=== PATIENT | male | born 1960 | race Caucasian/White ===

== ENCOUNTER 2022-05-04 15:47 | Emergency (ER) | payer BC ==
[2022-05-04] MEDS ORDERED: Magnesium 2 GM/50 ML BAG (IN WATER) ONE ×2 (16:18→17:05)
[2022-05-04 16:23] LABS: #Basophils 0.1 10x3/uL (0.0-0.2); #Eosinphils 0.3 10x3/uL (0.0-0.5); #Monocytes 0.8 10x3/uL (0.0-1.1); #Neutrophils 4.9 10x3/uL (1.5-8.4); %Basophils 1.1 % (0.0-2.0); %Eosinophils 3.8 % (0.0-6.0); %Lymphocytes 25.2 % (18.0-47.0); %Monocytes 9.5 % (0.0-10.0); %Neutrophils 59.7 % (40.0-75.0); Hemoglobin 11.1 g/dL (13.5-17.5); Mean Corpuscular HGB CONC 32.6 g/dL (32.0-36.0); Mean Corpuscular Hemoglobin 30.5 pg (27.0-33.0); Mean Corpuscular Volume 93.4 fl (81.2-95.1); Mean Platelet Volume 8.5 fl (7.4-10.4); Platelet Count 359 10x3/uL (150-450); RBC Distribution Width 15.3 % (11.5-14.5); Red Blood Cell (RBC) Count 3.64 10x6/uL (4.32-5.72); White Blood Cell (WBC) Count 8.2 10x3/uL (3.5-10.5)
[2022-05-04 16:34] LABS: ALT (SGPT) 38 U/L (8-55); AST (SGOT) 31 U/L (5-34); Albumin 3.3 g/dL (3.5-5.0); Alkaline Phosphatase 141 U/L (40-110); Anion Gap 14 mmol/L (10-20); BUN (Urea Nitrogen) 29 mg/dL (8.4-25.7); Bilirubin, Total 0.8 mg/dL (0.2-1.2); CK (CPK) 88 U/L (30-200); Calc. Creatinine Clearance 0 mL/min (70-130); Calcium 8.2 mg/dL (7.8-10.44); Carbon Dioxide 26 mmol/L (22-29); Chloride 94 mmol/L (98-107); Estimated GFR 49; Glucose 80 mg/dL (70-105); Magnesium 1.1 mg/dL (1.6-2.6); Potassium 3.1 mmol/L (3.5-5.1); Protein, Total 6.3 g/dL (6.0-8.3); Sodium 131 mmol/L (136-145)
[2022-05-04] MEDS ORDERED: diphenhydrAMINE 50 MG/ML VIAL ONE (17:05)
== END 2022-05-04 19:19 | disposition home or self-care (01) ==
LOC: CSHERS 15:47
DX: E83.42 Hypomagnesemia (principal); I25.2 Old myocardial infarction; I48.91 Unspecified atrial fibrillation; K21.9 Gastro-esophageal reflux disease without esophagitis; Z87.891 Personal history of nicotine dependence
CPT/HCPCS: 82550; 83735; 85025; 93005; 96365; 96366; 96375; J1200; J3475

== ENCOUNTER 2022-06-02 08:58 | Outpatient (CLI) | payer BC | END 2022-06-02 08:59 | disposition home or self-care (01) | LOC: CSHWCC 08:58 | PROVIDERS: ATTEND Nurse Practitioner Family | DX: L89.323 Pressure ulcer of left buttock, stage 3 (principal); T81.89XD Other complications of procedures, not elsewhere classified, subsequent encounter; Z93.2 Ileostomy status | CPT/HCPCS: 99204; G0463 ==

== ENCOUNTER 2022-06-30 13:01 | Outpatient (CLI) | payer BC | END 2022-06-30 13:02 | disposition home or self-care (01) | LOC: CSHWCC 13:01 | PROVIDERS: ATTEND Nurse Practitioner Family | DX: T81.89XD Other complications of procedures, not elsewhere classified, subsequent encounter (principal) | CPT/HCPCS: 99213; G0463 ==